=== PATIENT | female | born 1950 | race Caucasian/White ===

== ENCOUNTER 2021-07-01 21:08 | Emergency (ER) | payer MEDICARE ==
[2021-07-01] MEDS ORDERED: Pantoprazole 40 MG VIAL ONE (22:15)
[2021-07-01] MEDS ORDERED: Ondansetron PF 4 MG/2 ML Vial ONE (22:15)
[2021-07-01] MEDS ORDERED: Morphine 4 MG/ML VIAL ONE (22:15)
[2021-07-01] MEDS ORDERED: Acetaminophen 650 MG Suppository ONE (22:15)
[2021-07-01 22:34] LABS: ALT (SGPT) 22 U/L (8-55); AST (SGOT) 23 U/L (5-34); Albumin 3.6 g/dL (3.4-4.8); Alkaline Phosphatase 79 U/L (40-110); Anion Gap 16 mmol/L (10-20); BUN (Urea Nitrogen) 20 mg/dL (9.8-20.1); Bilirubin, Total 0.5 mg/dL (0.2-1.2); CK (CPK) 17 U/L (29-168); Calc. Creatinine Clearance 0 mL/min (70-130); Calcium 9.3 mg/dL (7.8-10.44); Carbon Dioxide 27 mmol/L (23-31); Chloride 104 mmol/L (98-107); Globulin 3.3 g/dL (2.4-3.5); Glucose 113 mg/dL (80-115); Magnesium 1.9 mg/dL (1.6-2.6); Potassium 3.9 mmol/L (3.5-5.1); Protein, Total 6.9 g/dL (5.8-8.1); Sodium 143 mmol/L (136-145)
[2021-07-01 22:35] LABS: Hemoglobin 11.1 g/dL (12.0-16.0); Mean Corpuscular HGB CONC 31.4 g/dL (32.0-36.0); Mean Corpuscular Hemoglobin 28.5 pg (27.0-31.0); Mean Corpuscular Volume 90.6 fL (78.0-98.0); Mean Platelet Volume 9.3 fL (7.4-10.4); Platelet Count 214 thou/uL (130-400); RBC Distribution Width 14.8 % (11.5-14.5); White Blood Cell (WBC) Count 42.8 thou/uL (4.8-10.8)
[2021-07-01 23:14] LABS: Lipase Less than 4 U/L (8-78)
[2021-07-01 23:28] LABS: Band 15 % (5-11); Hypochromia SLIGHT = 6-15 cells (100X) (0-5/hpf); Lymphocytes 4 % (21-51); MDiff Complete? YES; Microcytosis SLIGHT = 6-15 cells (100X) (0-5/hpf); Monocytes 36 % (0-10); Neutrophil 43 % (42-75); Reactive Lymphocytes 2 % (0-10)
[2021-07-01] MEDS ORDERED: Piperacillin/Tazobactam 4.5 GM VIAL ONE (23:42)
[2021-07-02] LABS: Bilirubin Negative (Negative); Blood, Urine Trace (Negative); Clarity Slightly Cloudy (Clear); Glucose, Urine (Dipstick) Negative (Negative); Ketone, Urine Negative (Negative); Leukocyte Large (Negative); Nitrite Negative (Negative); Protein, Urine (Dipstick) 30 mg/dL (Neg-Trace); Specific Gravity, Urine 1.015 (1.005-1.030); Urobilinogen 0.2 mg/dL (Less than 2); pH, Urine 8.5 (5.0-9.0)
[2021-07-02 00:06] LABS: RBC/HPF 0-3 HPF (0-3)
[2021-07-02 00:07] LABS: Bacteria/HPF 3+ HPF (None Seen); Squamous Epithelial 0-3 HPF (0-3); Transitional Epithelial 0-3 HPF (None Seen); WBC/HPF Greater Than 50 HPF (0-3)
[2021-07-02] MEDS ORDERED: Vancomycin HCl 750 MG VIAL ONE (00:27)
[2021-07-02 02:15] LABS: SARS-CoV-2 NAA Rapid Test Not Detected (NotDetected)
[2021-07-02] MEDS ORDERED: Norepinephrine 4 MG/4 ML VIAL ONE (02:36)
== END 2021-07-02 04:38 | disposition short-term general hospital (02) ==
LOC: MADERS 21:08
DX: A41.9 Sepsis, unspecified organism (principal); R65.21 Severe sepsis with septic shock; N39.0 Urinary tract infection, site not specified; K92.0 Hematemesis; R09.02 Hypoxemia; Z20.822 Contact with and (suspected) exposure to COVID-19
CPT/HCPCS: 36556; 71045; 74177; 80053; 81003; 81015; 82550; 83605; 83690; 83735; 84443; 84484; 85025; 86850; 86900; 86901; 87040; 93005; 96365; 96366; 96367; 96375; C9113; J2270; J2405; J2543; J3370; U0002

== ENCOUNTER 2021-08-27 19:03 | Emergency (ER) | payer MEDICARE, BC ==
[2021-08-27] MEDS ORDERED: Famotidine In NaCl 20 mg/50 ml Premix Bag ONE (19:34)
[2021-08-27] MEDS ORDERED: Lidocaine Viscous Sol 2% 15 ml UD Cup ONE (19:34)
[2021-08-27] MEDS ORDERED: Mag-Al Plus 1200 MG/1200 MG/120 MG/30 ML UDCUP ONE (19:35)
[2021-08-27 20:18] LABS: ALT (SGPT) 10 U/L (8-55); AST (SGOT) 11 U/L (5-34); Alkaline Phosphatase 76 U/L (40-110); Anion Gap 12 mmol/L (10-20); BUN (Urea Nitrogen) 12 mg/dL (9.8-20.1); Bilirubin, Total 0.5 mg/dL (0.2-1.2); Calc. Creatinine Clearance 0 mL/min (70-130); Calcium 8.5 mg/dL (7.8-10.44); Carbon Dioxide 25 mmol/L (23-31); Chloride 107 mmol/L (98-107); Globulin 3.6 g/dL (2.4-3.5); Glucose 108 mg/dL (83-110); Lipase 6 U/L (8-78); Potassium 3.4 mmol/L (3.5-5.1); Protein, Total 7.6 g/dL (5.8-8.1); Sodium 141 mmol/L (136-145)
[2021-08-27 20:25] LABS: Band 2 % (5-11); Hemoglobin 13.8 g/dL (12.0-16.0); Lymphocytes 15 % (21-51); MDiff Complete? YES; Mean Corpuscular HGB CONC 32.2 g/dL (32.0-36.0); Mean Corpuscular Hemoglobin 29.1 pg (27.0-31.0); Mean Corpuscular Volume 90.6 fL (78.0-98.0); Mean Platelet Volume 9.1 fL (7.4-10.4); Monocytes 32 % (0-10); Neutrophil 46 % (42-75); Platelet Count 222 thou/uL (130-400); RBC Distribution Width 13.5 % (11.5-14.5); RBC Morphology Normal; Reactive Lymphocytes 5 % (0-10); Red Blood Cell (RBC) Count 4.73 mill/uL (4.20-5.40); White Blood Cell (WBC) Count 13.4 thou/uL (4.8-10.8)
[2021-08-27 20:45] LABS: Bilirubin Negative (Negative); Blood, Urine Trace (Negative); Clarity Clear (Clear); Glucose, Urine (Dipstick) Negative (Negative); Ketone, Urine 40 mg/dL (Negative); Leukocyte Negative (Negative); Nitrite Negative (Negative); Protein, Urine (Dipstick) 30 mg/dL (Neg-Trace); Urobilinogen 0.2 mg/dL (Less than 2); pH, Urine 7.5 (5.0-9.0)
[2021-08-27 20:51] LABS: Bacteria/HPF None Seen HPF (None Seen); RBC/HPF 0-3 HPF (0-3); Squamous Epithelial 0-3 HPF (0-3); WBC/HPF None Seen HPF (0-3)
== END 2021-08-27 21:00 | disposition home or self-care (01) ==
LOC: MADERS 19:03
DX: K27.9 Peptic ulcer, site unspecified, unspecified as acute or chronic, without hemorrhage or perforation (principal); I10 Essential (primary) hypertension; E11.9 Type 2 diabetes mellitus without complications; E78.5 Hyperlipidemia, unspecified; Z79.899 Other long term (current) drug therapy
CPT/HCPCS: 80053; 81003; 81015; 83605; 83690; 84484; 85025; 93005; 94760; 96365

== ENCOUNTER 2021-09-28 16:02 | Emergency (ER) | payer BC ==
[2021-09-28] MEDS ORDERED: Promethazine HCl 25 MG/ML VIAL ONE (18:09)
[2021-09-28] MEDS ORDERED: Sodium Chloride 0.9% 1,000 ML ONE (18:10)
[2021-09-28 18:56] LABS: ALT (SGPT) 20 U/L (8-55); AST (SGOT) 27 U/L (5-34); Albumin 3.9 g/dL (3.4-4.8); Alkaline Phosphatase 71 U/L (40-110); Anion Gap 12 mmol/L (10-20); BUN (Urea Nitrogen) 13 mg/dL (9.8-20.1); Bilirubin, Total 0.3 mg/dL (0.2-1.2); CK (CPK) 17 U/L (29-168); Calc. Creatinine Clearance 0 mL/min (70-130); Carbon Dioxide 27 mmol/L (23-31); Chloride 103 mmol/L (98-107); Globulin 3.9 g/dL (2.4-3.5); Glucose 99 mg/dL (83-110); Lipase 7 U/L (8-78); Protein, Total 7.8 g/dL (5.8-8.1); Sodium 139 mmol/L (136-145)
[2021-09-28 19:01] LABS: Band 10 % (5-11); Hemoglobin 12.3 g/dL (12.0-16.0); Lymphocytes 26 % (21-51); MDiff Complete? YES; Mean Corpuscular HGB CONC 32.3 g/dL (32.0-36.0); Mean Corpuscular Hemoglobin 28.8 pg (27.0-31.0); Mean Corpuscular Volume 89.3 fL (78.0-98.0); Monocytes 47 % (0-10); Myelocyte 1 % (0-0); Neutrophil 16 % (42-75); Platelet Count 111 thou/uL (130-400); Platelet Morphology Comment Appears Decreased; RBC Morphology Normal; Red Blood Cell (RBC) Count 4.28 mill/uL (4.20-5.40); White Blood Cell (WBC) Count 7.8 thou/uL (4.8-10.8)
[2021-09-28] MEDS ORDERED: Sodium Chloride 0.9% 250 ML 250 ML ONE (20:18)
[2021-09-28] MEDS ORDERED: Metoclopramide HCl 10 MG/2 ML VIAL ONE (20:18)
== END 2021-09-28 21:23 | disposition home or self-care (01) ==
LOC: MADERS 16:02
DX: E86.0 Dehydration (principal); D72.821 Monocytosis (symptomatic); R11.2 Nausea with vomiting, unspecified; I10 Essential (primary) hypertension; E78.5 Hyperlipidemia, unspecified; E11.9 Type 2 diabetes mellitus without complications; Z87.19 Personal history of other diseases of the digestive system
CPT/HCPCS: 71045; 80053; 82550; 83690; 85025; 86140; 96365; 96375; J2550; J2765; J7050

== ENCOUNTER 2021-10-01 13:52 | Emergency (ER) | payer MEDICARE, BC ==
[2021-10-02 15:58] LABS: SARS-CoV-2 PCR by NAA DETECTED (NotDetected)
== END 2021-10-01 15:16 | disposition home or self-care (01) ==
LOC: MADERS 13:52
CPT/HCPCS: 87804; 99283; U0003; U0005

== ENCOUNTER 2023-05-19 20:25 | Emergency (ER) | payer MEDICARE ==
[2023-05-19] MEDS ORDERED: Sodium Chloride 0.9% 500 ML ONE ×2 (20:52→22:06)
[2023-05-19 21:53] LABS: ALT (SGPT) Less than 7 U/L (8-55); AST (SGOT) 12 U/L (5-34); Alkaline Phosphatase 61 U/L (40-110); Anion Gap 17 mmol/L (10-20); BUN (Urea Nitrogen) 24 mg/dL (9.8-20.1); Bilirubin, Total 0.3 mg/dL (0.2-1.2); Calc. Creatinine Clearance 0 mL/min (70-130); Calcium 8.9 mg/dL (7.8-10.44); Carbon Dioxide 20 mmol/L (23-31); Chloride 106 mmol/L (98-107); Estimated GFR 26; Globulin 3.4 g/dL (2.4-3.5); Glucose 102 mg/dL (83-110); Potassium 4.1 mmol/L (3.5-5.1); Protein, Total 7.4 g/dL (5.8-8.1); Sodium 139 mmol/L (136-145)
[2023-05-19 21:57] LABS: Band 3 % (5-11); Hematocrit 32.5 % (36.0-47.0); Lymphocytes 16 % (21-51); MDiff Complete? YES; Mean Corpuscular HGB CONC 33.8 g/dL (32.0-36.0); Mean Corpuscular Hemoglobin 30.7 pg (27.0-31.0); Mean Corpuscular Volume 90.8 fl (78.0-98.0); Mean Platelet Volume 12.3 fL (7.4-10.4); Monocytes 51 % (0-10); Neutrophil 30 % (42-75); Platelet Adequacy Comment Appears Adequate; Platelet Count 159 10x3/uL (130-400); RBC Distribution Width 13.1 % (11.5-14.5); Red Blood Cell (RBC) Count 3.57 mill/uL (4.20-5.40); White Blood Cell (WBC) Count 5.4 10x3/uL (4.8-10.8)
[2023-05-19 21:59] LABS: Troponin I Less than 0.010 ng/mL (< 0.028)
[2023-05-19 22:01] LABS: Bilirubin Negative (Negative); Blood, Urine Negative (Negative); Clarity Clear (Clear); Glucose, Urine (Dipstick) Negative (Negative); Ketone, Urine Negative (Negative); Leukocyte Negative (Negative); Nitrite Negative (Negative); Protein, Urine (Dipstick) Negative (Neg-Trace); Urobilinogen 0.2 mg/dL (Less than 2); pH, Urine 5.5 (5.0-9.0)
[2023-05-19 22:04] LABS: CAUTI Indications for Culture Dysuria,urgency,freq; RBC/HPF None Seen HPF (0-3); WBC/HPF None Seen HPF (0-3)
[2023-05-19 22:05] LABS: Urine Culture Reflex No No
== END 2023-05-20 00:04 | disposition short-term general hospital (02) ==
LOC: MADERS 20:25
DX: S50.311A Abrasion of right elbow, initial encounter (principal); K21.9 Gastro-esophageal reflux disease without esophagitis; I10 Essential (primary) hypertension; E78.5 Hyperlipidemia, unspecified; E11.9 Type 2 diabetes mellitus without complications; W19.XXXA Unspecified fall, initial encounter
CPT/HCPCS: 70450; 71045; 72170; 80053; 81001; 84484; 85025; 93005; 94760; 96360; J7030

== ENCOUNTER 2024-03-29 22:12 | Emergency (ER) | payer MEDICARE, BC ==
[2024-03-29] MEDS ORDERED: Ondansetron PF 4 MG/2 ML Vial ONE (23:08)
[2024-03-29 23:10] LABS: Hematocrit 35.6 % (36.0-47.0); Hemoglobin 11.3 g/dL (12.0-16.0); Lymphocytes 20 % (21-51); MDiff Complete? YES; Mean Corpuscular HGB CONC 31.7 g/dL (32.0-36.0); Mean Corpuscular Volume 91.5 fl (78.0-98.0); Mean Platelet Volume 9.3 fL (7.4-10.4); Monocytes 52 % (0-10); Neutrophil 28 % (42-75); Platelet Count 124 10x3/uL (130-400); RBC Distribution Width 13.5 % (11.5-14.5); Red Blood Cell (RBC) Count 3.89 mill/uL (4.20-5.40); White Blood Cell (WBC) Count 6.3 10x3/uL (4.8-10.8)
[2024-03-29 23:16] LABS: ALT (SGPT) Less than 7 U/L (8-55); AST (SGOT) 10 U/L (5-34); Albumin 3.9 g/dL (3.4-4.8); Alkaline Phosphatase 66 U/L (40-110); Anion Gap 18 mmol/L (10-20); BUN (Urea Nitrogen) 28 mg/dL (9.8-20.1); Bilirubin, Total 0.5 mg/dL (0.2-1.2); Calc. Creatinine Clearance 0 mL/min (70-130); Calcium 9.1 mg/dL (7.8-10.44); Carbon Dioxide 21 mmol/L (23-31); Chloride 106 mmol/L (98-107); Estimated GFR 23; Globulin 2.9 g/dL (2.4-3.5); Glucose 110 mg/dL (83-110); Lipase 19 U/L (8-78); Magnesium 1.5 mg/dL (1.6-2.6); Potassium 3.7 mmol/L (3.5-5.1); Protein, Total 6.8 g/dL (5.8-8.1); Sodium 141 mmol/L (136-145); Troponin I 0.038 ng/mL (< 0.028)
[2024-03-29] MEDS ORDERED: Magnesium Oxide 400 MG TAB ONE (23:37)
[2024-03-29] MEDS ORDERED: Sodium Chloride 0.9% 500 ML ONE (23:37)
[2024-03-30 00:33] LABS: Bilirubin Negative (Negative); Blood, Urine Negative (Negative); CAUTI Indications for Culture Fever or rigors; Clarity Clear (Clear); Glucose, Urine (Dipstick) Negative (Negative); Ketone, Urine Negative (Negative); Leukocyte Negative (Negative); Nitrite Negative (Negative); Protein, Urine (Dipstick) 30 mg/dL (Neg-Trace); RBC/HPF None Seen HPF (0-3); Squamous Epithelial 0-3 HPF (0-3); Urobilinogen 0.2 mg/dL (Less than 2); WBC/HPF None Seen HPF (0-3); pH, Urine 6.5 (5.0-9.0)
[2024-03-30 00:34] LABS: Urine Culture Reflex No No
[2024-03-30] MEDS ORDERED: Metoclopramide HCl 10 MG (2 mL) VIAL ONE (00:55)
[2024-03-30] MEDS ORDERED: Sodium Chloride 0.9% 100 ML ONE (00:55)
[2024-03-30] MEDS ORDERED: diphenhydrAMINE 50 MG/ML VIAL ONE (00:55)
[2024-03-30 01:42] LABS: Troponin I 0.026 ng/mL (< 0.028)
== END 2024-03-30 04:03 | disposition short-term general hospital (02) ==
LOC: MADERS 22:12
DX: R11.2 Nausea with vomiting, unspecified (principal); N17.9 Acute kidney failure, unspecified; E83.42 Hypomagnesemia; R79.89 Other specified abnormal findings of blood chemistry; K21.9 Gastro-esophageal reflux disease without esophagitis; I10 Essential (primary) hypertension; E78.5 Hyperlipidemia, unspecified; Z79.899 Other long term (current) drug therapy
CPT/HCPCS: 71045; 74176; 80053; 81001; 83690; 83735; 83880; 84484; 85025; 93005; J1200; J2405; J2765; J7030; 96361; 96374; 96375

== ENCOUNTER 2024-04-07 21:00 | Emergency (ER) | payer MEDICARE, BC ==
[2024-04-07] MEDS ORDERED: Sodium Chloride 0.9% 500 ML ONE (21:43)
[2024-04-07 22:00] LABS: Hematocrit 38.1 % (36.0-47.0); Hemoglobin 12.4 g/dL (12.0-16.0); Lymphocytes 40 % (21-51); MDiff Complete? YES; Mean Corpuscular HGB CONC 32.6 g/dL (32.0-36.0); Mean Corpuscular Hemoglobin 29.4 pg (27.0-31.0); Mean Corpuscular Volume 90.1 fl (78.0-98.0); Mean Platelet Volume 9.6 fL (7.4-10.4); Monocytes 32 % (0-10); Neutrophil 28 % (42-75); Platelet Count 164 10x3/uL (130-400); RBC Distribution Width 13.2 % (11.5-14.5); Red Blood Cell (RBC) Count 4.22 mill/uL (4.20-5.40); White Blood Cell (WBC) Count 7.9 10x3/uL (4.8-10.8)
[2024-04-07 22:04] LABS: Influenza A by NAA Not Detected (NotDetected); Influenza B by NAA Not Detected (NotDetected); SARS-CoV-2 NAA Rapid Test Not Detected (NotDetected)
[2024-04-07 22:07] LABS: ALT (SGPT) Less than 7 U/L (8-55); AST (SGOT) 9 U/L (5-34); Albumin 4.3 g/dL (3.4-4.8); Alkaline Phosphatase 80 U/L (40-110); Anion Gap 20 mmol/L (10-20); BUN (Urea Nitrogen) 35 mg/dL (9.8-20.1); Bilirubin, Total 0.5 mg/dL (0.2-1.2); Calc. Creatinine Clearance 0 mL/min (70-130); Calcium 9.3 mg/dL (7.8-10.44); Carbon Dioxide 20 mmol/L (23-31); Chloride 101 mmol/L (98-107); Estimated GFR 19; Globulin 3.5 g/dL (2.4-3.5); Glucose 100 mg/dL (83-110); Lipase 13 U/L (8-78); Magnesium 1.9 mg/dL (1.6-2.6); Potassium 3.2 mmol/L (3.5-5.1); Protein, Total 7.8 g/dL (5.8-8.1); Sodium 138 mmol/L (136-145); Troponin I 0.104 ng/mL (< 0.028)
[2024-04-07] MEDS ORDERED: Potassium Bicarbonate/Cit Ac 20 MEQ TAB ONE (22:28)
[2024-04-07] MEDS ORDERED: Aspirin 325 MG TAB ONE (22:28)
[2024-04-07] MEDS ORDERED: Sodium Chloride 0.9% 1,000 ML ONE (22:32)
[2024-04-07] MEDS ORDERED: NS 0.9% w/ 20 MEQ KCL 1,000 ML ONE (23:14)
[2024-04-07] MEDS ORDERED: Aspirin 300 MG Suppository ONE (23:14)
[2024-04-07] MEDS ORDERED: Ondansetron PF 4 MG/2 ML Vial ONE (23:37)
[2024-04-08] MEDS ORDERED: Sodium Chloride 0.9% 1,000 ML IV SCH (01:30)
== END 2024-04-07 23:53 | disposition short-term general hospital (02) ==
LOC: MADERS 21:00
DX: I21.4 Non-ST elevation (NSTEMI) myocardial infarction (principal); N17.9 Acute kidney failure, unspecified; R94.31 Abnormal electrocardiogram [ECG] [EKG]; I10 Essential (primary) hypertension; Z79.899 Other long term (current) drug therapy
CPT/HCPCS: 0240U; 71045; 80053; 83690; 83735; 83880; 84484; 85025; 93005; 96361; 96374; 99285; J2405; J3480; J7030; J7050

== ENCOUNTER 2025-08-20 17:43 | Emergency (ER) | payer MEDICARE, BC ==
[2025-08-20 19:13] LABS: ALT (SGPT) 11 U/L (Less than 34); AST (SGOT) 11 U/L (11-34); Albumin 3.7 g/dL (3.1-4.5); Alkaline Phosphatase 52 U/L (40-110); Anion Gap 14 mmol/L (10-20); BUN (Urea Nitrogen) 56 mg/dL (9.8-20.1); Bilirubin, Total 0.3 mg/dL (0.3-1.2); Calc. Creatinine Clearance 0 mL/min (70-130); Calcium 8.7 mg/dL (7.8-10.44); Carbon Dioxide 23 mmol/L (23-31); Chloride 108 mmol/L (98-107); Globulin 2.8 g/dL (2.4-3.5); Glucose 119 mg/dL (83-110); Lipase 7 U/L (8-78); Potassium 4.1 mmol/L (3.5-5.1); Sodium 141 mmol/L (136-145)
[2025-08-20 19:14] LABS: Anisocytosis SLIGHT = 6-15 cells (100X) (0-5/hpf); Hematocrit 33.8 % (36.0-47.0); Hemoglobin 10.9 g/dL (12.0-16.0); MDiff Complete? YES; Macrocytosis SLIGHT = 6-15 cells (100X) (0-5/hpf); Mean Corpuscular Hemoglobin 32.5 pg (27.0-31.0); Mean Corpuscular Volume 100.6 fl (78.0-98.0); Platelet Adequacy Comment Appears Adequate; Platelet Count 150 10x3/uL (130-400); Red Blood Cell (RBC) Count 3.36 mill/uL (4.20-5.40); White Blood Cell (WBC) Count 19.7 10x3/uL (4.8-10.8)
[2025-08-20 19:54] LABS: Glucose, Urine (Dipstick) Negative (Negative); Leukocyte Negative (Negative); Protein, Urine (Dipstick) 30 mg/dL (Neg-Trace); RBC/HPF None Seen HPF (0-3); Specific Gravity, Urine 1.020 (1.005-1.030)
[2025-08-20 19:55] LABS: Bacteria/HPF Rare-Few HPF (None Seen); CAUTI Indications for Culture Pelvic or flank pain; Urine Culture Reflex No No; WBC/HPF 0-3 HPF (0-3)
== END 2025-08-20 21:48 | disposition home or self-care (01) ==
LOC: MADERS 17:43
DX: M54.50 Low back pain, unspecified (principal); I12.9 Hypertensive chronic kidney disease with stage 1 through stage 4 chronic kidney disease, or unspecified chronic kidney disease; N18.4 Chronic kidney disease, stage 4 (severe); D72.829 Elevated white blood cell count, unspecified
CPT/HCPCS: 72131; 74176; 80053; 81001; 83690; 85025; 96360; J7030

== ENCOUNTER 2025-09-11 16:50 | Emergency (ER) | payer MEDICARE, BC ==
[2025-09-11] MEDS ORDERED: Ondansetron PF 4 MG/2 ML Vial ONE (17:37)
[2025-09-11 18:14] LABS: Glucose, Urine (Dipstick) Negative (Negative); Leukocyte Moderate (Negative); Protein, Urine (Dipstick) 100 mg/dL (Neg-Trace); Specific Gravity, Urine 1.015 (1.005-1.030)
[2025-09-11 18:16] LABS: Troponin I 0.046 ng/mL (< 0.028)
[2025-09-11 18:17] LABS: ALT (SGPT) 13 U/L (Less than 34); AST (SGOT) 14 U/L (11-34); Albumin 3.7 g/dL (3.1-4.5); Alkaline Phosphatase 104 U/L (40-110); Anion Gap 21 mmol/L (10-20); BUN (Urea Nitrogen) 33 mg/dL (9.8-20.1); Bilirubin, Total 0.6 mg/dL (0.3-1.2); Calc. Creatinine Clearance 0 mL/min (70-130); Calcium 8.8 mg/dL (7.8-10.44); Carbon Dioxide 23 mmol/L (23-31); Chloride 99 mmol/L (98-107); Globulin 2.8 g/dL (2.4-3.5); Glucose 100 mg/dL (83-110); Lipase 16 U/L (8-78); Magnesium 2.2 mg/dL (1.6-2.6); Potassium 4.2 mmol/L (3.5-5.1); Sodium 139 mmol/L (136-145)
[2025-09-11 18:22] LABS: Hematocrit 37.1 % (36.0-47.0); Hemoglobin 11.9 g/dL (12.0-16.0); Mean Corpuscular Hemoglobin 31.7 pg (27.0-31.0); Mean Corpuscular Volume 99.3 fl (78.0-98.0); Platelet Count 133 10x3/uL (130-400); Red Blood Cell (RBC) Count 3.74 mill/uL (4.20-5.40); White Blood Cell (WBC) Count 21.8 10x3/uL (4.8-10.8)
[2025-09-11 18:26] LABS: MDiff Complete? YES; Manual Diff?? YES
[2025-09-11 18:27] LABS: Platelet Adequacy Comment Appears Adequate
[2025-09-11 18:29] LABS: CAUTI Indications for Culture Dysuria,urgency,freq; RBC/HPF 0-3 HPF (0-3); WBC/HPF Greater Than 50 HPF (0-3)
[2025-09-11 18:30] LABS: Bacteria/HPF 3+ HPF (None Seen); Urine Culture Reflex Yes Yes
[2025-09-11] MEDS ORDERED: Dicyclomine 10 MG CAP ONE (20:32)
[2025-09-13 00:24] LABS: Campy jejuni + coli by PCR Negative (Negative); STEC Shiga Toxin 1+2 Negative (Negative); Salmonella spp. by PCR Negative (Negative); Shigella spp + EIEC by PCR Negative (Negative)
== END 2025-09-11 21:00 | disposition short-term general hospital (02) ==
LOC: MADERS 16:50
DX: N39.0 Urinary tract infection, site not specified (principal); E86.0 Dehydration; I12.9 Hypertensive chronic kidney disease with stage 1 through stage 4 chronic kidney disease, or unspecified chronic kidney disease; N18.4 Chronic kidney disease, stage 4 (severe); K21.9 Gastro-esophageal reflux disease without esophagitis; Z79.899 Other long term (current) drug therapy
CPT/HCPCS: 51701; 70450; 71045; 74176; 80053; 81001; 83605; 83690; 83735; 84484; 85025; 87086; 87505; 93005; 96361; 96365; 96375; J2405; J2543; J7030

== ENCOUNTER 2025-09-20 19:03 | Inpatient (IN) | payer MEDICARE, BC ==
[2025-09-20 20:19] LABS: Hematocrit 32.8 % (36.0-47.0); Hemoglobin 10.3 g/dL (12.0-16.0); Mean Corpuscular Hemoglobin 31.4 pg (27.0-31.0); Mean Corpuscular Volume 100.1 fl (78.0-98.0); Platelet Count 196 10x3/uL (130-400); Red Blood Cell (RBC) Count 3.27 mill/uL (4.20-5.40); White Blood Cell (WBC) Count 16.0 10x3/uL (4.8-10.8)
[2025-09-20 20:25] LABS: Glucose, Urine (Dipstick) Negative (Negative); Leukocyte Negative (Negative); Protein, Urine (Dipstick) 30 mg/dL (Neg-Trace); Specific Gravity, Urine 1.020 (1.005-1.030)
[2025-09-20 20:29] LABS: ALT (SGPT) 12 U/L (Less than 34); AST (SGOT) 13 U/L (11-34); Albumin 3.2 g/dL (3.1-4.5); Alkaline Phosphatase 69 U/L (40-110); Anion Gap 15 mmol/L (10-20); BUN (Urea Nitrogen) 34 mg/dL (9.8-20.1); Bilirubin, Total 0.1 mg/dL (0.3-1.2); Calc. Creatinine Clearance 0 mL/min (70-130); Calcium 8.5 mg/dL (7.8-10.44); Carbon Dioxide 25 mmol/L (23-31); Chloride 107 mmol/L (98-107); Globulin 2.7 g/dL (2.4-3.5); Glucose 97 mg/dL (83-110); Lipase 20 U/L (8-78); Magnesium 2.2 mg/dL (1.6-2.6); Potassium 4.0 mmol/L (3.5-5.1); Sodium 143 mmol/L (136-145)
[2025-09-20 20:30] LABS: Troponin I 0.023 ng/mL (< 0.028)
[2025-09-20 20:33] LABS: Bacteria/HPF Rare-Few HPF (None Seen); CAUTI Indications for Culture Dysuria,urgency,freq; Mucous/LPF 1+ LPF (<2+); RBC/HPF 0-3 HPF (0-3); WBC/HPF 0-3 HPF (0-3)
[2025-09-20 20:34] LABS: Urine Culture Reflex No No
[2025-09-20 20:50] LABS: MDiff Complete? YES; Nucleated RBC (Manual Ct) 1 % (0); Platelet Adequacy Comment Appears Adequate
[2025-09-20] MEDS ORDERED: Ondansetron PF 4 MG/2 ML Vial IVP PRN (22:15)
[2025-09-20] MEDS ORDERED: Acetaminophen 325 MG TAB PO PRN (22:15)
[2025-09-20] MEDS: Gabapentin 300 MG CAP PO SCH (23:14)
[2025-09-20] MEDS: ALPRAZolam 0.5 MG TAB PO SCH (23:16)
[2025-09-20] MEDS: Cefdinir 300 MG CAP PO SCH (23:17)
[2025-09-20 23:55] VITALS: BMI 26.9
[2025-09-21 05:40] LABS: Anion Gap 14 mmol/L (10-20); BUN (Urea Nitrogen) 29 mg/dL (9.8-20.1); Calc. Creatinine Clearance 23 mL/min (70-130); Calcium 8.0 mg/dL (7.8-10.44); Carbon Dioxide 23 mmol/L (23-31); Chloride 113 mmol/L (98-107); Glucose 88 mg/dL (83-110); Potassium 3.8 mmol/L (3.5-5.1); Sodium 146 mmol/L (136-145)
[2025-09-21 06:07] LABS: Hematocrit 28.8 % (36.0-47.0); Hemoglobin 9.0 g/dL (12.0-16.0); MDiff Complete? YES; Mean Corpuscular Hemoglobin 31.4 pg (27.0-31.0); Mean Corpuscular Volume 100.4 fl (78.0-98.0); Platelet Adequacy Comment Appears Adequate; Platelet Count 149 10x3/uL (130-400); Red Blood Cell (RBC) Count 2.87 mill/uL (4.20-5.40); White Blood Cell (WBC) Count 12.5 10x3/uL (4.8-10.8)
[2025-09-21] MEDS: Cefdinir 300 MG CAP PO SCH ×2 (08:55→20:11)
[2025-09-21] MEDS: predniSONE 20 MG TAB PO SCH (08:55)
[2025-09-21] MEDS: ALPRAZolam 0.5 MG TAB PO SCH (08:55)
[2025-09-21] MEDS: Pantoprazole 40 MG DR.TAB PO SCH (08:55)
[2025-09-21] MEDS ORDERED: Bisacodyl 10 MG SUPP PR PRN (09:20)
[2025-09-21] MEDS ORDERED: Senokot S 8.6-50 MG TAB PO PRN (09:20)
[2025-09-21] MEDS: ALPRAZolam 0.5 MG TAB PO PRN (20:10)
[2025-09-21] MEDS: Famotidine/PF 20 mg/2ml Vial SLOW IVP SCH (20:10)
[2025-09-21] MEDS: Gabapentin 300 MG CAP PO SCH (20:11)
[2025-09-21] MEDS: Transdermal Patch Removal TOP SCH (20:13)
[2025-09-22 05:20] LABS: Hematocrit 26.2 % (36.0-47.0); Hemoglobin 8.6 g/dL (12.0-16.0); MDiff Complete? YES; Mean Corpuscular Hemoglobin 32.2 pg (27.0-31.0); Mean Corpuscular Volume 97.9 fl (78.0-98.0); Platelet Adequacy Comment Appears Adequate; Platelet Count 151 10x3/uL (130-400); Red Blood Cell (RBC) Count 2.68 mill/uL (4.20-5.40); White Blood Cell (WBC) Count 15.3 10x3/uL (4.8-10.8)
[2025-09-22 05:26] LABS: ALT (SGPT) 7 U/L (Less than 34); AST (SGOT) 10 U/L (11-34); Albumin 2.8 g/dL (3.1-4.5); Alkaline Phosphatase 55 U/L (40-110); Anion Gap 13 mmol/L (10-20); BUN (Urea Nitrogen) 24 mg/dL (9.8-20.1); Bilirubin, Total 0.1 mg/dL (0.3-1.2); Calc. Creatinine Clearance 30 mL/min (70-130); Calcium 8.3 mg/dL (7.8-10.44); Carbon Dioxide 21 mmol/L (23-31); Chloride 112 mmol/L (98-107); Globulin 2.7 g/dL (2.4-3.5); Glucose 113 mg/dL (83-110); Potassium 3.8 mmol/L (3.5-5.1); Sodium 142 mmol/L (136-145)
[2025-09-22] MEDS: predniSONE 10 MG TAB PO SCH (08:35)
[2025-09-22] MEDS: Enoxaparin 30 MG (0.3 mL) SYRINGE SC SCH (08:35)
[2025-09-22] MEDS: Pantoprazole 40 MG DR.TAB PO SCH (08:36)
[2025-09-22 18:45] VITALS: BMI 26.9
[2025-09-23 05:13] LABS: #Basophils 0.4 thou/uL (0.0-0.2); #Eosinophils 0.0 thou/uL (0.0-0.7); #Lymphocytes 3.1 thou/uL (1.20-3.40); #Monocytes 2.2 thou/uL (0.11-0.59); #Neutrophils 10.5 thou/uL (1.40-6.50); %Basophils 2.2 % (0.0-1.0); %Eosinophils 0.2 % (0.0-10.0); %Lymphocytes 19.4 % (21.0-51.0); %Monocytes 13.3 % (0.0-10.0); %Neutrophils 64.9 % (42.0-75.0); Hematocrit 26.9 % (36.0-47.0); Hemoglobin 8.8 g/dL (12.0-16.0); Mean Corpuscular Hemoglobin 31.7 pg (27.0-31.0); Mean Corpuscular Volume 96.5 fl (78.0-98.0); Platelet Count 147 10x3/uL (130-400); Red Blood Cell (RBC) Count 2.79 mill/uL (4.20-5.40); White Blood Cell (WBC) Count 16.2 10x3/uL (4.8-10.8)
[2025-09-23 05:27] LABS: ALT (SGPT) 7 U/L (Less than 34); AST (SGOT) 9 U/L (11-34); Albumin 2.8 g/dL (3.1-4.5); Alkaline Phosphatase 52 U/L (40-110); Anion Gap 12 mmol/L (10-20); BUN (Urea Nitrogen) 24 mg/dL (9.8-20.1); Bilirubin, Total 0.1 mg/dL (0.3-1.2); Calc. Creatinine Clearance 33 mL/min (70-130); Calcium 8.6 mg/dL (7.8-10.44); Carbon Dioxide 22 mmol/L (23-31); Chloride 111 mmol/L (98-107); Globulin 2.7 g/dL (2.4-3.5); Glucose 97 mg/dL (83-110); Potassium 3.8 mmol/L (3.5-5.1); Sodium 141 mmol/L (136-145)
[2025-09-23] MEDS: Acetaminophen 325 MG TAB PO PRN (08:51)
[2025-09-30 05:28] LABS: Anion Gap 16 mmol/L (10-20); BUN (Urea Nitrogen) 34 mg/dL (9.8-20.1); Calc. Creatinine Clearance 28 mL/min (70-130); Calcium 9.0 mg/dL (7.8-10.44); Carbon Dioxide 23 mmol/L (23-31); Chloride 107 mmol/L (98-107); Glucose 88 mg/dL (83-110); Potassium 3.7 mmol/L (3.5-5.1); Sodium 142 mmol/L (136-145)
[2025-09-30 07:05] VITALS: BP 108/61; TEMP 98.3
== END 2025-09-30 13:15 | disposition home or self-care (01) | DRG 945 ==
LOC: MADERS 19:03 → UNDOADMIN 21:41 → MADMS 21:41
PROVIDERS: ADMIT Family Medicine; ATTEND Family Medicine
PROC: F07Z5ZZ Bed Mobility Treatment (ICD-10-PCS; principal; 2025-09-22)
PROC: F08Z0ZZ Bathing/Showering Techniques Treatment (ICD-10-PCS; 2025-09-22)
DX: R53.81 Other malaise (principal); N39.0 Urinary tract infection, site not specified; E86.0 Dehydration; K21.9 Gastro-esophageal reflux disease without esophagitis; Z92.21 Personal history of antineoplastic chemotherapy; Z92.25 Personal history of immunosuppression therapy; Z98.890 Other specified postprocedural states; Z79.899 Other long term (current) drug therapy; Z88.5 Allergy status to narcotic agent; Z88.8 Allergy status to other drugs, medicaments and biological substances; I12.9 Hypertensive chronic kidney disease with stage 1 through stage 4 chronic kidney disease, or unspecified chronic kidney disease; E03.9 Hypothyroidism, unspecified; Z85.71 Personal history of Hodgkin lymphoma; N18.32 Chronic kidney disease, stage 3b; R26.89 Other abnormalities of gait and mobility
CPT/HCPCS: 36415; 51701; 70450; 71045; 71250; 74177; 80048; 80053; 81001; 83605; 83690; 83735; 84484; 85025; 87086; 87428; 93005; 96360; J1308; J1650; J7030; J7512; Q0162